=== PATIENT | female | born 1990 | race Asian ===

== ENCOUNTER 2020-09-10 22:36 | Emergency (ER) | payer MEDICAID ==
[~2020-09-10] VITALS: Ht 160 cm; Wt 50.0 kg
[2020-09-10] MEDS ORDERED: IBUPROFEN 600MG TABLET PO ONE (23:00)
[2020-09-10 23:57] VITALS: BP 126/89
== END 2020-09-10 23:58 | disposition home or self-care (01) ==
LOC: ER 22:36
DX: S19.89XA Other specified injuries of other specified part of neck, initial encounter (principal); V49.49XA Driver injured in collision with other motor vehicles in traffic accident, initial encounter; Y93.89 Activity, other specified; Y92.89 Other specified places as the place of occurrence of the external cause; Y99.8 Other external cause status
CPT/HCPCS: 81025; 99282